=== PATIENT | female | born 1995 | race African-American/Black ===

== ENCOUNTER 2022-02-06 18:19 | Emergency (ER) | payer OTHER ==
[~2022-02-06] VITALS: Ht 175.3 cm; Wt 68.0 kg
[2022-02-06 18:33] VITALS: BP 103/61
[2022-02-06] MEDS ORDERED: DIPH-988 PO (19:00)
[2022-02-06] MEDS ORDERED: predniSONE 20 MG TAB PO ONE (19:00)
[2022-02-06] MEDS ORDERED: PRED20TA5 PO (19:00)
--- NOTE | 2022-02-06 19:02 | NUR ---
26/F PRESENTS TO ED WITH C/O SKIN RASH AND BUMPS X1 WEEK, REPORTS SHE BEGAN USING A NEW LOTION AND RASH OCCURRED SOON AFTER. REPORTS SEEING HER PCP AND RECEIVING AN OINTMENT AND STEROID SHOT WITH NO RELIEF. DENIES SOB, O2 IN TRIAGE 100%.
[2022-02-06 19:23] VITALS: BP 103/61
--- NOTE | 2022-02-06 19:23 | NUR ---
Patient discharged with v/s stable. Written and verbal after care instructions ABOUT ATOPIC DERMATITIS given and explained. Patient alert, oriented and verbalized understanding of instructions. Ambulatory with steady gait. All questions addressed prior to discharge. ID band removed. Patient advised to follow up with PMD. Rx of DIPHENHYDRAMINE AND DELTASONE given. Patient educated on indication of medication including possible reaction and side effects. Opportunity to ask questions provided and answered.
== END 2022-02-06 19:29 | disposition home or self-care (01) ==
LOC: MED 18:19
DX: L20.9 Atopic dermatitis, unspecified (principal); J45.909 Unspecified asthma, uncomplicated
CPT/HCPCS: 99283; J7512; Q0163

== ENCOUNTER 2022-07-14 13:13 | Emergency (ER) | payer OTHER ==
[~2022-07-14] VITALS: Ht 175.3 cm; Wt 70.8 kg
[~2022-07-14 13:13] MED LIST: DIPH-988 PO; PRED20TA5 PO
[2022-07-14 13:27] VITALS: BP 118/66
[2022-07-14] MEDS ORDERED: NACL 0.9% 1,000 ML IV ONE (14:05)
[2022-07-14] MEDS ORDERED: HALOPERIDOL IM 5 MG/ML VIAL IM ONE (14:05)
--- NOTE | 2022-07-14 14:30 | NUR ---
PT C/O N/V NASAL CONGESTION SINCE THIS AM. NSR ON MONITOR. IV INSERTED TO LEFT FA #[id number].
[2022-07-14 14:51] LABS: BASOPHILS # (AUTO) 0.1 K/uL (0.00-0.22); BASOPHILS % (AUTO) 0.4 % (0.0-2.0); EOSINOPHILS # (AUTO) 0.1 K/uL (0-0.4); EOSINOPHILS % (AUTO) 1.1 % (0.0-4.0); HEMATOCRIT 37.2 % (36-48); LYMPHOCYTES # (AUTO) 0.9 K/uL (2.5-16.5); LYMPHOCYTES % (AUTO) 6.4 % (20.5-51.1); MEAN CORPUSCULAR HEMOGLOBIN 29 pg (27-31); MEAN CORPUSCULAR HGB CONC 32 g/dL (33-37); MEAN CORPUSCULAR VOLUME 90.8 fL (80-94); MONOCYTES # (AUTO) 0.5 K/uL (0.8-1.0); MONOCYTES % (AUTO) 3.8 % (1.7-9.3); NEUTROPHILS # (AUTO) 11.7 K/uL (1.8-7.7); NEUTROPHILS % (AUTO) 88.3 % (42.2-75.2); PLATELET COUNT (AUTO) 188 K/uL (140-450); RED CELL DISTRIBUTION WIDTH 13.7 % (11.6-13.7); WHITE BLOOD COUNT (AUTO) 13.2 K/uL (4.8-10.8)
[2022-07-14 15:14] LABS: ANION GAP 13.2 (8-16); CARBON DIOXIDE 26.3 mmol/L (21-32); CREATININE 0.7 mg/dL (0.6-1.3); POTASSIUM 3.5 mmol/L (3.5-5.1); TOTAL BILIRUBIN 0.7 mg/dL (0.0-1.0)
--- NOTE | 2022-07-14 15:15 | NUR ---
PT RESTING IN RNEY NO S/S PAIN OR DISCOMFORT.
--- NOTE | 2022-07-14 15:45 | NUR ---
TOLEATED PO WITHOUT N/V
[2022-07-14] MEDS ORDERED: ONDA-188 PO (16:06)
== END 2022-07-14 16:12 | disposition home or self-care (01) ==
LOC: MED 13:13
DX: R11.15 Cyclical vomiting syndrome unrelated to migraine (principal); Z20.822 Contact with and (suspected) exposure to COVID-19
CPT/HCPCS: 36415; 80053; 83690; 84703; 85025; 87426; 87804; 96360; 96372; 99283; J1630; J7030